=== PATIENT | female | born 1990 | race African-American/Black ===

== ENCOUNTER 2018-09-11 12:40 | Emergency (ER) | payer MEDICAID ==
[~2018-09-11] VITALS: Ht 152.4 cm; Wt 73.5 kg
[2018-09-11 13:25] VITALS: BP 102/69
[2018-09-11] MEDS ORDERED: ACETAMINOPHEN 325 MG TAB PO ONE (14:15)
== END 2018-09-11 15:58 | disposition home or self-care (01) ==
LOC: ER 12:43
DX: R20.0 Anesthesia of skin (principal); R20.2 Paresthesia of skin
CPT/HCPCS: 93970

== ENCOUNTER 2022-07-25 20:16 | Emergency (ER) | payer MEDICAID ==
[~2022-07-25] VITALS: Ht 152.4 cm; Wt 58.0 kg
[2022-07-25 23:47] VITALS: BP 150/67
[2022-07-25] MEDS ORDERED: NAP500T PO (23:59)
[2022-07-26] MEDS ORDERED: KETOROLAC TROMETH 60MG/2ML VIAL IM ONE
== END 2022-07-26 00:17 | disposition home or self-care (01) ==
LOC: ER 20:17
DX: M43.6 Torticollis (principal); M54.2 Cervicalgia; M25.512 Pain in left shoulder
CPT/HCPCS: 96372; 99283; J1885